=== PATIENT | male | born 1995 | race Caucasian/White ===

== ENCOUNTER 2023-12-08 19:05 | Emergency (ER) | payer SELFPAY ==
[~2023-12-08] VITALS: Ht 182.9 cm; Wt 102.4 kg
[2023-12-08 19:15] VITALS: TEMP 99.2; O2SAT 97
[2023-12-08 19:58] LABS: BASOPHILS % 0.6 % (0.0-2.0); EOSINOPHILS % 0.1 % (0.0-5.0); HEMATOCRIT. 45.9 % (42.0-52.0); HEMOGLOBIN. 15.7 g/dL (14.0-18.0); LYMPHOCYTES % 13.1 % (20.0-50.0); MEAN CORPUSCULAR HEMOGLOBIN 31.1 pg (28.0-32.0); MEAN CORPUSCULAR HGB CONC 34.2 g/dL (31.0-37.0); MEAN CORPUSCULAR VOLUME 90.9 fL (80.0-94.0); MEAN PLATELET VOLUME 8.9 fl (7.4-10.4); MONOCYTES % 4.6 % (2.0-8.0); NEUTROPHILS % 81.6 % (40.0-76.0); PLATELET 231 x1000/uL (130-400); RED BLOOD CELL COUNT 5.05 mill/uL (4.7-6.1); RED CELL DISTRIBUTION WIDTH 13.1 % (11.6-14.6); WHITE BLOOD COUNT 10.9 x1000/uL (4.5-11.0)
[2023-12-08 20:12] LABS: ALANINE AMINOTRANSFERASE 28 IU/L (10-49); ALBUMIN 5.1 g/dL (3.2-4.8); ASPARTATE AMINOTRANSFERASE 27 IU/L (<34); BILIRUBIN TOTAL 0.5 mg/dL (0.1-1.0); CALCIUM 9.9 mg/dL (8.7-10.4); CARBON DIOXIDE 27 mEq/L (21-32); CHLORIDE 104 mEq/L (98-107); CREATININE 0.9 mg/dL (0.6-1.3); GLUCOSE 110 mg/dL (70-105); POTASSIUM 3.8 mEq/L (3.5-5.1); PROTEIN TOTAL 8.2 g/dL (6.0-8.3); SODIUM 140 mEq/L (136-145); UREA NITROGEN BLOOD 10 mg/dL (9-23)
[2023-12-08 20:57] LABS: TROPONIN I HIGH SENSITIVITY < 4 ng/L (3.0-53)
[2023-12-08 23:22] VITALS: BP 144/68; PULSE 58; RESP 16
[2023-12-08] MEDS: IBUPROFEN 600MG TABLET PO ONE (23:22)
== END 2023-12-08 23:24 | disposition home or self-care (01) ==
LOC: ER 19:05
DX: R07.89 Other chest pain (principal)
CPT/HCPCS: 36415; 71045; 80053; 84484; 85025; 93005; 99285